=== PATIENT | female | born 1955 | race Caucasian/White ===

== ENCOUNTER → 2016-11-27 | Outpatient (CLI) | payer MEDICARE, MEDICAID ==
[~2016-11-27] MED LIST: AMBIEN5 MG PO; AZITHROMYCIN250 MG PO; BENTYL10 MG PO; CARAFATE1 G1 PO; CARDIZEM30 MG PO; CIPRO500 MG PO; CIPROFLOXACIN500 MG PO; DELTASONE10 MG; DIFLUCAN100 MG; DONNATAL1 TAB PO; DOXYCYCLINE MO100 MG; FLAGYL500 MG PO; IMITREX100 MG PO; K + POTASSIUM20 MEQ PO; K-DUR 20MEQ20 MEQ PO; K-Dur 20MEQ20 MEQ PO; LASIX40 MG PO; NAPROSYN500 MG PO; NEURONTIN300 MG PO; NORTRIPTYLINE10 MG PO; OXYCODONE30 MG; OXYCODONE30 MG PO; PERCOCET 325 MG1 TA7 PO; PHENERGAN25 M1 PO; PLAVIX75 M1 PO; POTASSIUM CHLO10 ME1 PO; PREDNISONE10 MG PO; PRILOSEC OTC20 MG PO; PROTONIX40 MG PO; ROBITUSSIN AC 110 ML PO; ROXICET 325 MG-1 TAB PO; SEROQUEL50 MG PO; TOPAMAX25 MG PO; TRAMADOL HCL50 MG PO; ULTRAM50 MG PO; XANAX0.25 MG PO; XANAX0.5 MG PO; XANAX1 MG PO; ZANTAC150 MG PO; ZOFRAN ODT8 MG PO; Zofran4 MG PO
== END | disposition home or self-care (01) ==
LOC: RAD 14:16
DX: J44.9 Chronic obstructive pulmonary disease, unspecified (principal); R07.9 Chest pain, unspecified; Z91.81 History of falling

== ENCOUNTER → 2017-05-04 | Outpatient (CLI) | payer MEDICARE, MEDICAID | END | disposition home or self-care (01) | LOC: RAD 11:32 | DX: M19.042 Primary osteoarthritis, left hand (principal); M19.041 Primary osteoarthritis, right hand; M25.642 Stiffness of left hand, not elsewhere classified ==

== ENCOUNTER → 2017-06-22 | Outpatient (CLI) | payer MEDICARE, MEDICAID | END | disposition home or self-care (01) | LOC: RAD 08:33 | DX: M25.511 Pain in right shoulder (principal); M25.512 Pain in left shoulder ==

== ENCOUNTER → 2017-08-05 | Outpatient (CLI) | payer MEDICARE | END | disposition home or self-care (01) | LOC: RAD 13:05 | DX: Z13.820 Encounter for screening for osteoporosis (principal); C44.90 Unspecified malignant neoplasm of skin, unspecified; Z78.0 Asymptomatic menopausal state ==

== ENCOUNTER → 2017-11-24 | Outpatient (CLI) | payer MEDICARE ==
[~2017-11-24] MED LIST changes: +CYMBALTA20 M1 PO; +DOXYCYCLINE100 MG PO; +FORTEO2.4 ML SQ; +LORADAMED10 MG PO; +MEDROL DOSEPAK4 MG PO; +MELATONIN10 M4 PO; +NATURE'S BLEND F1 MG PO; +TRAZODONE50 MG PO; +VITAMIN D50000 UNIT PO
[2017-11-24 16:19] LABS: BASO # 0.1 10*3/uL (0.0-0.1); BASO % 0.7 % (0.0-1.0); EOS # 0.1 10*3/uL (0.0-0.4); EOS % 1.2 % (1.0-4.0); HEMATOCRIT 43.3 % (37.0-47.0); HEMOGLOBIN 13.8 g/dl (12.0-16.0); LYMPH # 2.5 10*3/uL (1.3-4.4); MEAN CELL VOLUME 100.5 fl (81.0-99.0); MEAN CORPUSCULAR HGB CONC 31.9 g/dl (33.0-37.0); MEAN PLATELET VOLUME 10.1 fl (9.6-12.3); MONO # 0.3 10*3/uL (0.1-1.0); MONO % 4.5 % (3.0-9.0); NEUT # 4.3 10*3/uL (2.3-7.9); NEUT % 59.3 % (47.0-73.0); PLATELET COUNT AUTOMATED 182 10*3/uL (130-400); RED BLOOD COUNT 4.31 10*6/uL (4.10-5.10); RED CELL DISTRI WIDTH 13.3 % (0-14.5); WHITE BLOOD COUNT 7.3 10*3/uL (4.8-10.8)
[2017-11-24 16:35] LABS: ALBUMIN 3.8 gm/dl (3.1-4.5); ALKALINE PHOSPHATASE 85 U/L (45-117); BUN 10 mg/dl (7-24); CHLORIDE 106 mmol/L (98-107); CREATININE 0.84 mg/dL (0.55-1.02); FREE T4 0.94 ng/dl (0.76-1.46); POTASSIUM 3.8 mmol/L (3.5-5.1); SGOT/AST 15 IU/L (3-35); SGPT/ALT 19 U/L (12-78); SODIUM 141 mmol/L (136-145); TOTAL PROTEIN 7.2 gm/dL (6.4-8.2)
[2017-11-25 08:08] LABS: RHEUMATOID ARTHRITIS FACTOR <10.0 IU/mL (0.0-13.9)
== END | disposition home or self-care (01) ==
LOC: MAMMO 11-19 08:20 → LAB 14:17 → MAMMO 14:30
PROVIDERS: Internal Medicine
DX: Z12.31 Encounter for screening mammogram for malignant neoplasm of breast (principal); M81.0 Age-related osteoporosis without current pathological fracture; E78.5 Hyperlipidemia, unspecified; G62.9 Polyneuropathy, unspecified; R07.81 Pleurodynia; I63.9 Cerebral infarction, unspecified; R05 Cough; Z79.899 Other long term (current) drug therapy

== ENCOUNTER 2018-01-17 13:02 | Inpatient (IN) | payer MEDICARE ==
[~2018-01-17] VITALS: Ht 172.7 cm; Wt 71.9 kg
[2018-01-17 13:02] VITALS: BP 160/103; BP 160/86
[~2018-01-17 13:02] MED LIST changes: -CYMBALTA20 M1 PO; -DOXYCYCLINE100 MG PO; -FORTEO2.4 ML SQ; -LORADAMED10 MG PO; -MEDROL DOSEPAK4 MG PO; -MELATONIN10 M4 PO; -NATURE'S BLEND F1 MG PO; -TRAZODONE50 MG PO; -VITAMIN D50000 UNIT PO
[2018-01-17] MEDS ORDERED: NATURE'S BLEND F1 MG PO (13:51)
[2018-01-17] MEDS ORDERED: MELATONIN10 M4 PO (13:52)
[2018-01-17] MEDS ORDERED: LORADAMED10 MG PO (13:52)
[2018-01-17] MEDS ORDERED: TRAZODONE50 MG PO (13:53)
[2018-01-17 14:06] LABS: BASO % 0.3 % (0.0-1.0); EOS # 0.1 10*3/uL (0.0-0.4); EOS % 1.6 % (1.0-4.0); HEMATOCRIT 45.2 % (37.0-47.0); HEMOGLOBIN 14.4 g/dl (12.0-16.0); LYMPH # 2.8 10*3/uL (1.3-4.4); LYMPH % 37.3 % (27.0-41.0); MEAN CELL VOLUME 98.9 fl (81.0-99.0); MEAN CORPUSCULAR HGB 31.5 pg (27.0-31.0); MEAN CORPUSCULAR HGB CONC 31.9 g/dl (33.0-37.0); MEAN PLATELET VOLUME 10.8 fl (9.6-12.3); MONO # 0.4 10*3/uL (0.1-1.0); MONO % 5.3 % (3.0-9.0); NEUT # 4.2 10*3/uL (2.3-7.9); NEUT % 55.2 % (47.0-73.0); PLATELET COUNT AUTOMATED 178 10*3/uL (130-400); RED BLOOD COUNT 4.57 10*6/uL (4.10-5.10); RED CELL DISTRI WIDTH 13.2 % (0-14.5); WHITE BLOOD COUNT 7.6 10*3/uL (4.8-10.8)
[2018-01-17 14:18] LABS: ACT PARTIAL THROMBO TIME 25.9 SECONDS (20.8-31.5)
[2018-01-17 14:36] LABS: ALBUMIN 3.8 gm/dl (3.1-4.5); ALKALINE PHOSPHATASE 112 U/L (45-117); BUN 5 mg/dl (7-24); CHLORIDE 112 mmol/L (98-107); POTASSIUM 3.9 mmol/L (3.5-5.1); SGOT/AST 18 IU/L (3-35); SGPT/ALT 16 U/L (12-78); SODIUM 139 mmol/L (136-145); TOTAL PROTEIN 6.9 gm/dL (6.4-8.2)
[2018-01-17 16:00] VITALS: BP 160/86
[2018-01-17 16:04] VITALS: BP 122/78
[2018-01-17] MEDS ORDERED: FORTEO2.4 ML SQ (16:58)
[2018-01-17 18:51] VITALS: BP 122/78
[2018-01-17 20:00] VITALS: BP 120/72
[2018-01-18] VITALS: BP 116/63; BP 134/84
[2018-01-18 06:52] LABS: BASO % 0.6 % (0.0-1.0); EOS # 0.2 10*3/uL (0.0-0.4); EOS % 3.2 % (1.0-4.0); HEMOGLOBIN 12.4 g/dl (12.0-16.0); LYMPH # 2.6 10*3/uL (1.3-4.4); LYMPH % 52.3 % (27.0-41.0); MEAN CELL VOLUME 99.2 fl (81.0-99.0); MEAN CORPUSCULAR HGB 31.6 pg (27.0-31.0); MEAN CORPUSCULAR HGB CONC 31.8 g/dl (33.0-37.0); MEAN PLATELET VOLUME 10.3 fl (9.6-12.3); MONO # 0.3 10*3/uL (0.1-1.0); MONO % 5.8 % (3.0-9.0); NEUT # 1.9 10*3/uL (2.3-7.9); NEUT % 37.9 % (47.0-73.0); PLATELET COUNT AUTOMATED 155 10*3/uL (130-400); RED BLOOD COUNT 3.93 10*6/uL (4.10-5.10); RED CELL DISTRI WIDTH 13.2 % (0-14.5)
[2018-01-18 07:34] LABS: BUN 12 mg/dl (7-24); CHLORIDE 115 mmol/L (98-107); CREATININE 0.87 mg/dL (0.55-1.02); SODIUM 145 mmol/L (136-145)
[2018-01-18 08:00] VITALS: BP 132/72
[2018-01-18 16:00] VITALS: BP 112/52
[2018-01-18 20:00] VITALS: BP 113/77
[2018-01-19] VITALS: BP 98/80
[2018-01-19 06:40] LABS: BASO % 0.7 % (0.0-1.0); EOS # 0.2 10*3/uL (0.0-0.4); EOS % 2.5 % (1.0-4.0); HEMOGLOBIN 11.8 g/dl (12.0-16.0); LYMPH # 2.4 10*3/uL (1.3-4.4); LYMPH % 41.3 % (27.0-41.0); MEAN CELL VOLUME 99.7 fl (81.0-99.0); MEAN CORPUSCULAR HGB 31.8 pg (27.0-31.0); MEAN CORPUSCULAR HGB CONC 31.9 g/dl (33.0-37.0); MEAN PLATELET VOLUME 10.1 fl (9.6-12.3); MONO # 0.4 10*3/uL (0.1-1.0); MONO % 5.9 % (3.0-9.0); NEUT # 2.9 10*3/uL (2.3-7.9); NEUT % 49.4 % (47.0-73.0); PLATELET COUNT AUTOMATED 155 10*3/uL (130-400); RED BLOOD COUNT 3.71 10*6/uL (4.10-5.10); RED CELL DISTRI WIDTH 13.4 % (0-14.5); WHITE BLOOD COUNT 5.9 10*3/uL (4.8-10.8)
[2018-01-19 07:05] LABS: BUN 13 mg/dl (7-24); CHLORIDE 115 mmol/L (98-107); CREATININE 0.84 mg/dL (0.55-1.02); POTASSIUM 3.9 mmol/L (3.5-5.1); SODIUM 146 mmol/L (136-145)
[2018-01-19 08:00] VITALS: BP 122/72
[2018-01-19 12:00] VITALS: BP 125/61
[2018-01-19] MEDS ORDERED: DOXYCYCLINE100 MG PO (14:36)
[2018-01-19] MEDS ORDERED: MEDROL DOSEPAK4 MG PO (14:37)
[2018-01-19] MEDS ORDERED: VITAMIN D50000 UNIT PO (14:37)
[2018-01-19] MEDS ORDERED: NAPROSYN500 MG PO (14:37)
[2018-01-19] MEDS ORDERED: CYMBALTA20 M1 PO (14:37)
== END 2018-01-19 15:26 | disposition home or self-care (01) | DRG 540 ==
LOC: ED 13:02 → 5E 15:14 → EDHOLD 15:14 → 5E 15:43
PROVIDERS: Internal Medicine; Physician Assistant
DX: M86.9 Osteomyelitis, unspecified (principal); L03.113 Cellulitis of right upper limb; G90.511 Complex regional pain syndrome I of right upper limb; J44.9 Chronic obstructive pulmonary disease, unspecified; F41.9 Anxiety disorder, unspecified; Z88.6 Allergy status to analgesic agent; Z88.8 Allergy status to other drugs, medicaments and biological substances; Z98.51 Tubal ligation status; Z90.49 Acquired absence of other specified parts of digestive tract; Z82.49 Family history of ischemic heart disease and other diseases of the circulatory system; Z82.3 Family history of stroke; Z83.3 Family history of diabetes mellitus; Z82.0 Family history of epilepsy and other diseases of the nervous system; Z79.899 Other long term (current) drug therapy; W18.39XA Other fall on same level, initial encounter; Y93.89 Activity, other specified; Y92.098 Other place in other non-institutional residence as the place of occurrence of the external cause; Y99.8 Other external cause status

== ENCOUNTER → 2018-03-11 | Outpatient (CLI) | payer MEDICARE ==
[~2018-03-11] MED LIST changes: +CYMBALTA20 M1 PO; +DOXYCYCLINE100 MG PO; +FORTEO2.4 ML SQ; +LORADAMED10 MG PO; +MEDROL DOSEPAK4 MG PO; +MELATONIN10 M4 PO; +NATURE'S BLEND F1 MG PO; +TRAZODONE50 MG PO; +VITAMIN D50000 UNIT PO
== END | disposition home or self-care (01) ==
LOC: CT 01:04
DX: J43.9 Emphysema, unspecified (principal); F17.210 Nicotine dependence, cigarettes, uncomplicated

== ENCOUNTER → 2018-03-19 | Outpatient (CLI) | payer MEDICARE | END | disposition home or self-care (01) | LOC: MRI 13:00 | DX: R22.2 Localized swelling, mass and lump, trunk (principal) ==

== ENCOUNTER 2018-09-04 15:05 | Emergency (ER) | payer MEDICARE, MEDICAID ==
[~2018-09-04] VITALS: Ht 172.7 cm; Wt 74.8 kg
[2018-09-04 15:49] LABS: BASO % 0.4 % (0.0-1.0); EOS % 0.5 % (1.0-4.0); HEMATOCRIT 40.7 % (37.0-47.0); HEMOGLOBIN 13.8 g/dl (12.0-16.0); LYMPH # 2.3 10*3/uL (1.3-4.4); LYMPH % 30.9 % (27.0-41.0); MEAN CELL VOLUME 95.5 fl (81.0-99.0); MEAN CORPUSCULAR HGB 32.4 pg (27.0-31.0); MEAN CORPUSCULAR HGB CONC 33.9 g/dl (33.0-37.0); MEAN PLATELET VOLUME 10.9 fl (9.6-12.3); MONO # 0.4 10*3/uL (0.1-1.0); NEUT # 4.5 10*3/uL (2.3-7.9); NEUT % 61.9 % (47.0-73.0); PLATELET COUNT AUTOMATED 173 10*3/uL (130-400); RED BLOOD COUNT 4.26 10*6/uL (4.10-5.10); RED CELL DISTRI WIDTH 13.1 % (0-14.5); WHITE BLOOD COUNT 7.3 10*3/uL (4.8-10.8)
[2018-09-04 16:14] LABS: ALBUMIN 3.6 gm/dl (3.1-4.5); ALKALINE PHOSPHATASE 109 U/L (45-117); BUN 8 mg/dl (7-24); CHLORIDE 114 mmol/L (98-107); CREATININE 0.89 mg/dL (0.55-1.02); POTASSIUM 3.7 mmol/L (3.5-5.1); SGOT/AST 10 IU/L (3-35); SGPT/ALT 14 U/L (12-78); SODIUM 142 mmol/L (136-145); TOTAL PROTEIN 6.8 gm/dL (6.4-8.2)
[2018-09-04 16:37] LABS: BILIRUBIN NEGATIVE (NEGATIVE); BLOOD 1+ (NEGATIVE); CLARITY CLEAR (CLEAR); COLOR YELLOW (YELLOW); GLUCOSE NEGATIVE (NEGATIVE); KETONE NEGATIVE (NEGATIVE); LEUKO ESTERASE 1+ (NEGATIVE); NITRITE NEGATIVE (NEGATIVE); PH 6.5 (5.0-9.0); SPECIFIC GRAVITY <= 1.005 (1.005-1.030); UROBILINOGEN 0.2 E.U./dl (0.2-1.0)
[2018-09-04] MEDS ORDERED: VIBRAMYCIN100 MG PO (17:31)
== END 2018-09-04 17:57 | disposition home or self-care (01) ==
LOC: ED 15:05
PROVIDERS: Nurse Practitioner Family
DX: L03.114 Cellulitis of left upper limb (principal); F17.200 Nicotine dependence, unspecified, uncomplicated; Z88.8 Allergy status to other drugs, medicaments and biological substances; Z88.6 Allergy status to analgesic agent; Z88.5 Allergy status to narcotic agent; Z91.018 Allergy to other foods; Z79.2 Long term (current) use of antibiotics; Z79.899 Other long term (current) drug therapy

== ENCOUNTER 2019-05-28 14:13 | Emergency (ER) | payer OTHER, MEDICAID ==
[~2019-05-28] VITALS: Ht 172.7 cm; Wt 72.6 kg
[~2019-05-28 14:13] MED LIST changes: +VIBRAMYCIN100 MG PO
[2019-05-28] MEDS ORDERED: ZOFRAN4 MG PO (15:13)
[2019-05-28] MEDS ORDERED: KEFLEX500 M1 PO (15:13)
[2019-05-28] MEDS ORDERED: IMODIUM A-D2 M2 PO (15:13)
[2019-05-28] MEDS ORDERED: ULTRAM50 MG PO (17:46)
== END 2019-05-28 17:49 | disposition home or self-care (01) ==
LOC: ED 14:13
DX: S20.20XA Contusion of thorax, unspecified, initial encounter (principal); M19.90 Unspecified osteoarthritis, unspecified site; K21.9 Gastro-esophageal reflux disease without esophagitis; G43.909 Migraine, unspecified, not intractable, without status migrainosus; Z88.8 Allergy status to other drugs, medicaments and biological substances; Z88.5 Allergy status to narcotic agent; Z79.899 Other long term (current) drug therapy; W01.198A Fall on same level from slipping, tripping and stumbling with subsequent striking against other object, initial encounter; Y93.89 Activity, other specified; Y92.098 Other place in other non-institutional residence as the place of occurrence of the external cause; Y99.8 Other external cause status

== ENCOUNTER 2019-06-03 16:15 | Emergency (ER) | payer OTHER, MEDICAID ==
[~2019-06-03] VITALS: Ht 172.7 cm; Wt 72.6 kg
[~2019-06-03 16:15] MED LIST changes: +IMODIUM A-D2 M2 PO; +KEFLEX500 M1 PO; +ZOFRAN4 MG PO
[2019-06-03 17:18] LABS: CLARITY SL CLOUDY (CLEAR); COLOR YELLOW (YELLOW)
[2019-06-03 17:23] LABS: BASO # 0.1 10*3/uL (0.0-0.1); BASO % 0.8 % (0.0-1.0); EOS % 0.5 % (1.0-4.0); HEMATOCRIT 41.8 % (37.0-47.0); HEMOGLOBIN 13.3 g/dl (12.0-16.0); LYMPH # 2.5 10*3/uL (1.3-4.4); LYMPH % 38.7 % (27.0-41.0); MEAN CELL VOLUME 96.1 fl (81.0-99.0); MEAN CORPUSCULAR HGB 30.6 pg (27.0-31.0); MEAN CORPUSCULAR HGB CONC 31.8 g/dl (33.0-37.0); MONO # 0.4 10*3/uL (0.1-1.0); MONO % 6.2 % (3.0-9.0); NEUT # 3.4 10*3/uL (2.3-7.9); NEUT % 53.6 % (47.0-73.0); PLATELET COUNT AUTOMATED 208 10*3/uL (130-400); RED BLOOD COUNT 4.35 10*6/uL (4.10-5.10); RED CELL DISTRI WIDTH 13.6 % (0-14.5); WHITE BLOOD COUNT 6.4 10*3/uL (4.8-10.8)
[2019-06-03 17:24] LABS: BILIRUBIN NEGATIVE (NEGATIVE); BLOOD 1+ (NEGATIVE); GLUCOSE NEGATIVE (NEGATIVE); KETONE NEGATIVE (NEGATIVE); LEUKO ESTERASE 3+ (NEGATIVE); NITRITE NEGATIVE (NEGATIVE); PH 6.5 (5.0-9.0); SPECIFIC GRAVITY 1.015 (1.005-1.030); UROBILINOGEN 0.2 E.U./dl (0.2-1.0)
[2019-06-03 17:26] LABS: RBC 16-20 rbc/hpf (0-2)
[2019-06-03 17:27] LABS: BACTERIA 1+; EPITHELIAL CELLS 21-30; WBC 51-100 wbc/hpf (0-5)
[2019-06-03 17:39] LABS: ALBUMIN 3.4 gm/dl (3.1-4.5); ALKALINE PHOSPHATASE 112 U/L (45-117); BUN 5 mg/dl (7-24); CHLORIDE 111 mmol/L (98-107); CREATININE 0.83 mg/dL (0.55-1.02); LIPASE 64 U/L (73-393); POTASSIUM 3.5 mmol/L (3.5-5.1); SGOT/AST 19 IU/L (3-35); SGPT/ALT 22 U/L (12-78); SODIUM 139 mmol/L (136-145); TOTAL PROTEIN 6.7 gm/dL (6.4-8.2)
[2019-06-03 17:42] LABS: TROPONIN I < 0.015 ng/ml (<0.045)
[2019-06-03] MEDS ORDERED: CEPHALEXIN500 M1 PO (18:58)
[2019-06-03] MEDS ORDERED: PERCOCET 5-3251 EACH PO (19:05)
== END 2019-06-03 19:07 | disposition home or self-care (01) ==
LOC: ED 16:15
PROVIDERS: Physician Assistant
DX: S20.212A Contusion of left front wall of thorax, initial encounter (principal); N39.0 Urinary tract infection, site not specified; J44.9 Chronic obstructive pulmonary disease, unspecified; M19.90 Unspecified osteoarthritis, unspecified site; K21.9 Gastro-esophageal reflux disease without esophagitis; G43.909 Migraine, unspecified, not intractable, without status migrainosus; F17.200 Nicotine dependence, unspecified, uncomplicated; Z88.8 Allergy status to other drugs, medicaments and biological substances; Z88.6 Allergy status to analgesic agent; Z88.5 Allergy status to narcotic agent; Z79.2 Long term (current) use of antibiotics; Z79.899 Other long term (current) drug therapy; Z90.49 Acquired absence of other specified parts of digestive tract; W19.XXXA Unspecified fall, initial encounter; Y93.89 Activity, other specified; Y92.89 Other specified places as the place of occurrence of the external cause; Y99.8 Other external cause status

== ENCOUNTER 2019-09-30 17:44 | Emergency (ER) | payer OTHER ==
[~2019-09-30] VITALS: Wt 71.7 kg
[~2019-09-30 17:44] MED LIST changes: +CEPHALEXIN500 M1 PO; +PERCOCET 5-3251 EACH PO
[2019-09-30] MEDS ORDERED: KEFLEX500 M1 PO (21:13)
== END 2019-09-30 22:53 | disposition home or self-care (01) ==
LOC: ED 17:44
DX: S81.001A Unspecified open wound, right knee, initial encounter (principal); S80.01XA Contusion of right knee, initial encounter; J44.9 Chronic obstructive pulmonary disease, unspecified; F17.200 Nicotine dependence, unspecified, uncomplicated; Z88.6 Allergy status to analgesic agent; Z88.8 Allergy status to other drugs, medicaments and biological substances; Z79.899 Other long term (current) drug therapy; W18.39XA Other fall on same level, initial encounter; Y93.89 Activity, other specified; Y92.89 Other specified places as the place of occurrence of the external cause; Y99.8 Other external cause status

== ENCOUNTER → 2019-10-27 | Outpatient (CLI) | payer OTHER | END | disposition home or self-care (01) | LOC: MAMMO 13:47 | PROVIDERS: ATTEND Internal Medicine | DX: Z12.31 Encounter for screening mammogram for malignant neoplasm of breast (principal) ==

== ENCOUNTER → 2020-07-30 | Outpatient (CLI) | payer OTHER | END | disposition home or self-care (01) | LOC: RAD 11:29 | PROVIDERS: ATTEND Internal Medicine | DX: M17.12 Unilateral primary osteoarthritis, left knee (principal); M25.462 Effusion, left knee; M25.762 Osteophyte, left knee; M85.862 Other specified disorders of bone density and structure, left lower leg ==

== ENCOUNTER 2020-08-28 11:46 | Emergency (ER) | payer OTHER ==
[~2020-08-28] VITALS: Ht 172.7 cm; Wt 74.8 kg
[2020-08-28] MEDS ORDERED: PREDNISONE10 MG PO (16:55)
[2020-08-28] MEDS ORDERED: CEPHALEXIN500 M1 PO (16:55)
== END 2020-08-28 17:01 | disposition home or self-care (01) ==
LOC: ED 11:46
DX: T78.40XA Allergy, unspecified, initial encounter (principal); Z88.8 Allergy status to other drugs, medicaments and biological substances; Z88.5 Allergy status to narcotic agent; Z88.6 Allergy status to analgesic agent; Z98.890 Other specified postprocedural states; X58.XXXA Exposure to other specified factors, initial encounter

== ENCOUNTER → 2020-10-01 | Outpatient (CLI) | payer OTHER ==
[~2020-10-01] MED LIST changes: +ASPIRIN ADULT L81 M1 PO; +FUROSEMIDE40 MG PO; +OMEPRAZOLE40 MG PO; +POTASSIUM CHLO20 ME4 PO
== END | disposition home or self-care (01) ==
LOC: RAD 13:30
PROVIDERS: ATTEND Orthopaedic Surgery
DX: M81.0 Age-related osteoporosis without current pathological fracture (principal); M79.7 Fibromyalgia

== ENCOUNTER → 2020-12-10 | Outpatient (CLI) | payer OTHER | END | disposition home or self-care (01) | LOC: MAMMO 11:30 | PROVIDERS: ATTEND Internal Medicine | DX: Z12.31 Encounter for screening mammogram for malignant neoplasm of breast (principal); N64.89 Other specified disorders of breast ==

== ENCOUNTER → 2021-01-24 | Day surgery (SDC) | payer OTHER ==
[~2021-01-24] VITALS: Ht 172.7 cm; Wt 78.5 kg
[~2021-01-24] MED LIST changes: +IBU800 M2 PO; -NEURONTIN300 MG PO; +NEURONTIN800 MG PO; +VITAMIN B-121000 MC2 PO; +VITAMIN C1000 M5 PO; +VITAMIN D325 MCG PO; -XANAX1 MG PO
[2021-01-24 10:54] VITALS: BP 131/98
[2021-01-24 13:20] VITALS: BP 129/83
[2021-01-24 13:25] VITALS: BP 135/75
[2021-01-24 13:50] VITALS: BP 140/68
[2021-01-24 14:10] VITALS: BP 153/70
== END | disposition home or self-care (01) ==
LOC: SDC 01-21 12:00
PROVIDERS: ATTEND Surgery
DX: L82.1 Other seborrheic keratosis (principal); D48.9 Neoplasm of uncertain behavior, unspecified; K21.9 Gastro-esophageal reflux disease without esophagitis; G43.909 Migraine, unspecified, not intractable, without status migrainosus; F41.9 Anxiety disorder, unspecified; F32.9 Major depressive disorder, single episode, unspecified; E78.5 Hyperlipidemia, unspecified; G47.00 Insomnia, unspecified; F17.210 Nicotine dependence, cigarettes, uncomplicated; M79.7 Fibromyalgia; J44.9 Chronic obstructive pulmonary disease, unspecified; Z79.899 Other long term (current) drug therapy; Z20.822 Contact with and (suspected) exposure to COVID-19

== ENCOUNTER → 2021-09-25 | Day surgery (SDC) | payer OTHER ==
[~2021-09-25] VITALS: Ht 172.7 cm; Wt 82.6 kg
[~2021-09-25] MED LIST changes: +CITALOPRAM20 MG PO; +DICLOFONO2.5 GM T; +EPIPEN 2-P0.3 MG/0.3 IJ; +LIPITOR40 MG PO; +VARENICLINE TA0.5 MG PO
[2021-09-25 07:30] VITALS: BP 115/85
[2021-09-25 09:05] VITALS: BP 146/89
[2021-09-25 09:20] VITALS: BP 136/75
[2021-09-25 09:35] VITALS: BP 140/91
== END | disposition home or self-care (01) ==
LOC: SDC 08-23 11:45
PROVIDERS: ATTEND Ophthalmology
DX: H25.811 Combined forms of age-related cataract, right eye (principal); K21.9 Gastro-esophageal reflux disease without esophagitis; F41.9 Anxiety disorder, unspecified; M19.90 Unspecified osteoarthritis, unspecified site; F32.9 Major depressive disorder, single episode, unspecified; G43.909 Migraine, unspecified, not intractable, without status migrainosus; F17.210 Nicotine dependence, cigarettes, uncomplicated; Z88.5 Allergy status to narcotic agent; Z88.6 Allergy status to analgesic agent; Z79.899 Other long term (current) drug therapy

== ENCOUNTER → 2021-11-27 | Day surgery (SDC) | payer OTHER ==
[~2021-11-27] VITALS: Ht 172.7 cm; Wt 86.2 kg
[~2021-11-27] MED LIST changes: +RECLAST5 MG/100 M IV
[2021-11-27 07:24] VITALS: BP 145/81
[2021-11-27 08:34] VITALS: BP 104/77
[2021-11-27 08:43] VITALS: BP 104/77
[2021-11-27 08:49] VITALS: BP 127/76
[2021-11-27 08:58] VITALS: BP 127/76
[2021-11-27 09:13] VITALS: BP 120/78
== END | disposition home or self-care (01) ==
LOC: SDC 10-25 14:00
PROVIDERS: ATTEND Ophthalmology
DX: H25.812 Combined forms of age-related cataract, left eye (principal); K21.9 Gastro-esophageal reflux disease without esophagitis; F41.9 Anxiety disorder, unspecified; M19.90 Unspecified osteoarthritis, unspecified site; F32.9 Major depressive disorder, single episode, unspecified; G43.909 Migraine, unspecified, not intractable, without status migrainosus; M79.7 Fibromyalgia; J44.9 Chronic obstructive pulmonary disease, unspecified; Z98.51 Tubal ligation status; Z90.49 Acquired absence of other specified parts of digestive tract; Z79.84 Long term (current) use of oral hypoglycemic drugs; Z79.82 Long term (current) use of aspirin; Z79.899 Other long term (current) drug therapy

== ENCOUNTER → 2021-12-11 | Outpatient (CLI) | payer OTHER | END | disposition home or self-care (01) | LOC: MAMMO 11:30 | PROVIDERS: ATTEND Internal Medicine | DX: Z12.31 Encounter for screening mammogram for malignant neoplasm of breast (principal); N63.0 Unspecified lump in unspecified breast ==

== ENCOUNTER → 2022-04-17 | Outpatient (CLI) | payer OTHER | END | disposition home or self-care (01) | LOC: RAD 12:07 | PROVIDERS: ATTEND Internal Medicine | DX: M17.0 Bilateral primary osteoarthritis of knee (principal); M25.761 Osteophyte, right knee; M25.762 Osteophyte, left knee; M25.862 Other specified joint disorders, left knee; M25.861 Other specified joint disorders, right knee ==

== ENCOUNTER → 2022-12-08 | Outpatient (CLI) | payer OTHER, MEDICAID ==
[~2022-12-08] MED LIST changes: +SUMATRIPTAN SUC50 M1 PO
== END | disposition home or self-care (01) ==
LOC: ORTHO 04:03
PROVIDERS: ATTEND Orthopaedic Surgery
DX: M19.012 Primary osteoarthritis, left shoulder (principal); M19.011 Primary osteoarthritis, right shoulder; M25.712 Osteophyte, left shoulder

== ENCOUNTER → 2023-05-29 | Outpatient (CLI) | payer OTHER, MEDICAID | END | disposition home or self-care (01) | LOC: ORTHO 01:47 | PROVIDERS: ATTEND Orthopaedic Surgery | DX: M25.511 Pain in right shoulder (principal); M25.512 Pain in left shoulder ==

== ENCOUNTER 2023-12-02 16:14 | Emergency (ER) | payer OTHER, MEDICAID ==
[~2023-12-02] VITALS: Wt 87.1 kg
[2023-12-02] MEDS ORDERED: SODIUM CHLORIDE 0.9% 1,000 ML IV ONE (17:15)
[2023-12-02 17:38] LABS: BASO # 0.1 10*3/uL (0.0-0.1); BASO % 0.6 % (0.0-1.0); EOS # 0.2 10*3/uL (0.0-0.4); EOS % 1.9 % (1.0-4.0); HEMATOCRIT 44.8 % (37.0-47.0); LYMPH # 3.7 10*3/uL (1.3-4.4); LYMPH % 36.6 % (27.0-41.0); MEAN CELL VOLUME 100.4 fl (81.0-99.0); MEAN CORPUSCULAR HGB 31.4 pg (27.0-31.0); MEAN CORPUSCULAR HGB CONC 31.3 g/dl (33.0-37.0); MEAN PLATELET VOLUME 10.2 fl (9.6-12.3); MONO # 0.5 10*3/uL (0.1-1.0); MONO % 5.3 % (3.0-9.0); NEUT # 5.6 10*3/uL (2.3-7.9); NEUT % 55.3 % (47.0-73.0); PLATELET COUNT AUTOMATED 245 10*3/uL (130-400); RED BLOOD COUNT 4.46 10*6/uL (4.10-5.10); RED CELL DISTRI WIDTH 13.7 % (0-14.5); WHITE BLOOD COUNT 10.1 10*3/uL (4.8-10.8)
[2023-12-02 17:59] LABS: ALKALINE PHOSPHATASE 107 U/L (46-116); BUN 6 mg/dl (9-23); CHLORIDE 109 mmol/L (98-107); CPK 128 U/L (34-171); POTASSIUM 4.1 mmol/L (3.4-5.1); SGPT/ALT 12 U/L (5-49); TOTAL PROTEIN 6.7 gm/dL (6.0-8.0)
== END 2023-12-02 19:17 | disposition home or self-care (01) ==
LOC: ED 16:14
PROVIDERS: Nurse Practitioner Family
DX: S09.8XXA Other specified injuries of head, initial encounter (principal); R55 Syncope and collapse; M19.90 Unspecified osteoarthritis, unspecified site; K21.9 Gastro-esophageal reflux disease without esophagitis; F41.9 Anxiety disorder, unspecified; F32.A Depression, unspecified; G43.909 Migraine, unspecified, not intractable, without status migrainosus; M79.7 Fibromyalgia; F17.290 Nicotine dependence, other tobacco product, uncomplicated; Z88.8 Allergy status to other drugs, medicaments and biological substances; Z88.6 Allergy status to analgesic agent; Z88.5 Allergy status to narcotic agent; Z90.49 Acquired absence of other specified parts of digestive tract; Z98.51 Tubal ligation status; Z98.890 Other specified postprocedural states; W01.198A Fall on same level from slipping, tripping and stumbling with subsequent striking against other object, initial encounter; Y93.89 Activity, other specified; Y92.89 Other specified places as the place of occurrence of the external cause; Y99.8 Other external cause status

== ENCOUNTER → 2024-09-08 | Outpatient (CLI) | payer OTHER | END | disposition home or self-care (01) | LOC: MAMMO 11:21 | PROVIDERS: ATTEND Internal Medicine | DX: Z12.31 Encounter for screening mammogram for malignant neoplasm of breast (principal) ==